=== PATIENT | male | born 1960 | race Two or more races ===

== ENCOUNTER 2020-09-19 19:03 | Emergency (ER) | payer SELFPAY ==
[~2020-09-19] VITALS: Ht 177.8 cm; Wt 81.8 kg
[2020-09-19] MEDS ORDERED: IV NORMAL SALINE 1000ML BAG 1,000 ML IV ONE (19:45)
[2020-09-19 19:56] LABS: BASO % 0 % (0-3); EOS % 0 % (0-3); HEMATOCRIT 45.8 % (39.0-53.0); HEMOGLOBIN 16.2 g/dL (13.0-17.5); LYMPH # 1.6 x10^3/uL (1.0-4.8); LYMPH % 19 % (24-48); MEAN CORPUSCULAR HEMOGLOBIN 30 pg (25-35); MEAN CORPUSCULAR HGB CONC 35 g/dL (31-37); MEAN CORPUSCULAR VOLUME 84 fL (79-100); MONO # 0.6 x10^3/uL (0.0-1.1); MONO % 7 % (0-9); NEUT # 6.1 x10^3/uL (1.8-7.7); NEUT % 73 % (31-73); PLATELET COUNT 142 x10^3/uL (140-400); RED BLOOD COUNT 5.46 x10^6/uL (4.30-5.70); RED CELL DISTRIBUTION WIDTH 13.8 % (11.5-14.5); WHITE BLOOD COUNT 8.3 x10^3/uL (4.0-11.0)
--- NOTE | 2020-09-19 19:56 | PHYS DOC ---
General Adult EDM: Chief Complaint: FLANK PAIN HPI: HPI: 60 yo M PMH DM and HTN presents to the ed with multiple complaints, c/o generalized weakness and fatigue with chronic low back pain. Reports he uses meth daily , has stopped the past 3 days. Is not compliant with any of his medications. Is requesting testing for Covid due to 3 days of subjective fever and chills, body aches, dry throat and decreased appetite. Patient believes he has an infection and has increased urinary frequency, urgency and foul-smelling urine. Review of Systems: Review of Systems: Constitutional: Denies diaphoresis or syncope Eyes: Denies change in visual acuity. [] HENT: Denies nasal congestion or rhinorrhea Respiratory: Denies hemoptysis or increased work of breathing Cardiovascular: Denies chest pain or edema or syncope GI: Denies abdominal pain, nausea, vomiting, bloody stools or diarrhea. [] : Denies hematuria Musculoskeletal: Denies back pain or joint pain. [] Integument: Denies rash. [] Neurologic: Denies headache, focal weakness or sensory changes or neck stiffness or saddle anesthesia or urinary bowel retention or incontinence Endocrine: Denies polyuria or polydipsia. [] Lymphatic: Denies swollen glands. [] Psychiatric: Denies depression or anxiety. [] Heart Score: Risk Factors: Risk Factors: DM, Current or recent (<one month) smoker, HTN, HLP, family history of CAD, obesity. Risk Scores: Score 0 - 3: 2.5% MACE over next 6 weeks - Discharge Home Score 4 - 6: 20.3% MACE over next 6 weeks - Admit for Clinical Observation Score 7 - 10: 72.7% MACE over next 6 weeks - Early Invasive Strategies Current Medications: Current Medications Medications (Trade) Dose Ordered Sig/Lora Start Time Stop Time Status Last Admin Dose Admin Sodium Chloride 1,000 ml @ 1,000 mls/hr 1X ONCE 09/19/20 19:45 09/19/20 20:44 09/19/20 19:50 1,000 MLS/HR Allergies: Allergies: Allergies Coded Allergies Type Severity Reaction Last Updated Verified No Known Drug Allergies 09/19/20 No Physical Exam: PE: Constitutional: Well developed, well nourished, no acute distress, non-toxic appearance, unkempt disheveled appearance HENT: Normocephalic, atraumatic, bilateral external ears normal, oropharynx moist, no oral exudates, Eyes: EOMI, conjunctiva normal, no discharge. [] Neck: Normal range of motion, supple, no stridor. [] Cardiovascular: S1/2 present Lungs & Thorax: Speaking in full sentences, bilateral equal chest rise Abdomen:soft, no tenderness, Skin: Warm, dry, no erythema, no rash. [] Back: No tenderness, no CVA tenderness. [] Extremities: No tenderness, no cyanosis, no clubbing, ROM intact, no edema. [] Neurologic: Alert and oriented X 3, normal motor function, normal sensory function, no focal deficits noted. [] Psychologic: Affect normal, judgement normal, mood normal. [] EKG: EKG: []Sinus rhythm at 76 bpm, no axis deviation, QTC 452, no T wave inversions, no ST elevations or ST depressions, no active chest pain Radiology/Procedures: Radiology/Procedures: []IMAGING REPORT Signed PATIENT: BENITA BAI ACCOUNT: [id number] : 1960 LOCATION: ER AGE: 60 SEX: M EXAM STATUS: PRE ER ORD. PHYSICIAN: MARLEY ANGUIANO DO REASON: flank pain PROCEDURE: PORTABLE CHEST 1V Exam: Chest one view INDICATION: Flank pain TECHNIQUE: Frontal view of the chest Comparisons: 02/09/2016 FINDINGS: The cardiomediastinal silhouette and pulmonary vessels are within normal limits. Linear bandlike opacity at the right lung base and to a lesser extent the left lung base. No pleural effusion. IMPRESSION: Bibasilar strandy airspace disease may relate to atelectasis or developing consolidative process. Electronically signed by: Gwendolyn Evans MD (09/19/2020 9:05 PM) [facility] DICTATED and SIGNED BY: GWENDOLYN EVANS MD DATE: 09/19/202104 Course & Med Decision Making: Course & Med Decision Making Pertinent Labs and Imaging studies reviewed. (See chart for details) COVID-19 CRITERIA: The patient was evaluated during the global COVID-19 pandemic, and that diagnosis was suspected/considered upon their initial presentation. Their evaluation, treatment and testing was consistent with current guidelines for patients who present with complaints or symptoms that may be related to COVID-19. Concern for generalized fatigue with nonspecific symptoms that could resemble Covid. Also with UTI complaints. Labs show uncontrolled non-anion gap diabetes and potassium of 3.2 that was replaced in the ED. Will DC home with Vantin for complicated UTI treatment. Covid test pending. Strict ED return precautions were given for increased work of breathing, chest pain, syncope or neurologic deficits. Encouraged urgent outpatient follow-up with PMD. Life-threatening processes were considered but are low suspicion at this time, given history and physical exam. Pt was educated on all prescription medications and adverse effects. All patient's questions were answered and pt was stable at time of discharge. Life/limb-threatening differential includes but is not limited to, surgical abdomen (appendicitis, cholecystitis, diverticulitis, inflammatory bowel disease, abscess, perforation), meningitis, encephalitis, Naga's angina, endocarditis, myocarditis, life-threatening rash (necrotizing fasciitis), gynecologic and urologic emergencies (endometritis, ovarian/testicular torsion, TOA, obstructive nephropathy, prostatitis), head and neck abscess, sepsis or shock, or respiratory failure. I spoken with the patient and her caregivers. I explained the patient's condition, diagnoses and treatment plan based on the information available to me at this time. I have answered the patient and her caregiver's questions and addressed any concerns. The patient and her caregivers have a good understanding of patient's diagnosis, condition and treatment plan as can be expected at this point. Vital signs have been stable. Patient's condition is stable and appropriate for discharge from the emergency department. Patient will pursue further outpatient evaluation with primary care physician or other designated or consulting physician as outlined in the discharge instructions. The patient and/or caregivers are agreeable to this plan of care and follow-up instructions have been explained in detail. The patient and/or caregivers have received these instructions in written form and have expressed an understanding of the discharge instructions. The patient and/or caregivers are aware that any significant change of condition or worsening of symptoms should prompt immediate return to this or the closest emergency department or call to 911. Faiza Disclaimer: Faiza Disclaimer: This electronic medical record was generated, in whole or in part, using a voice recognition dictation system. Departure Departure Impression: Primary Impression: Encounter for laboratory testing for COVID-19 virus Additional Impressions: Uncontrolled diabetes mellitus Methamphetamine use Disposition: 01 DC HOME SELF CARE/HOMELESS Condition: STABLE Referrals: NON,STAFF (PCP) FOLLOW UP WITH FAMILY MEDICINE: Family Medicine Address: [address] [place] [address] Patient Instructions: How to Avoid Diabetes Problems, Type 2 Diabetes Mellitus, Adult, Urinary Tract Infection Additional Instructions: EMERGENCY DEPARTMENT GENERAL DISCHARGE INSTRUCTIONS Thank you for coming to [facility] Emergency Department (ED) today and trusting us with you care. We trust that you had a positive experience in our Emergency Department. If you wish to speak to the department management, you may call the Director at [phone]. YOUR FOLLOW UP INSTRUCTIONS ARE FOLLOWS: 1. Do you have a private Doctor? If you do not have a private doctor, please ask for a resource list of physicians or clinics that may be able to assist you with follow up care. 2. The Emergency Physicain has interpreted your x-rays. The X-Ray specialist will also review them. If there is a change in the findings, you will be notified in 48 hours when at all possible. 3. A lab test or culture has been done, your results will be reviewed and you will be notified if you need a change in treatment. ADDITIONAL INSTRUCTIONS AND INFORMATION: 1. Your care today has been supervised by a physician who is specially trained in emergency care. Many problems require more than one evaluation for a complete diagnosis and treatment. We recommend that you schedule your follow up appointment as recommended to ensure complete treatment of you illness or injury. If you are unable to obtain follow up care and continue to have a problem, or if your condition worsens, we recommend that you return to the ED. 2. We are not able to safely determine your condition over the phone nor are we able to give sound medical advice over the phone. For these safety reasons, if you call for medical advice we will ask you to come to the ED for further evaluation. 3. If you have any questions regarding these discharge instructions please call the ED at [phone]. SAFETY INFORMATION: In the interest of safety, wellness, and injury prevention; we encourage you to wear your sealbelt, if you smoke; quite smoking, and we encourage family to use a protective helmet for bicycling and other sporting events that present an increased risk for head injury. IF YOUR SYMPTOMS WORSEN OR NEW SYMPTOMS DEVELOP, OR YOU HAVE CONCERNS ABOUT YOUR CONDITION; OR IF YOUR CONDITION WORSENS WHILE YOU ARE WAITING FOR YOUR FOLLOW UP APPOINTMENT; EITHER CONTACT YOUR PRIMARY CARE DOCTOR, THE PHYSICIAN WHOSE NAME AND NUMBER YOU WERE GIVEN, OR RETURN TO THE ED IMMEDIATELY. Scripts Cefpodoxime Proxetil (CEFPODOXIME PROXETIL) 200 Mg Tablet 1 TAB PO BID for 14 Days, #28 TAB Prov: MARLEY ANGUIANO DO 09/20/20 MARLEY ANGUIANO DO Sep 19, 2020 19:56
[2020-09-19 20:08] LABS: CALCIUM 8.7 mg/dL (8.5-10.1); GFR 76.2; POTASSIUM 3.2 mmol/L (3.5-5.1)
[2020-09-19 20:13] LABS: ALBUMIN 2.8 g/dL (3.4-5.0); ALBUMIN/GLOBULIN RATIO 0.6 (1.0-1.7); TOTAL BILIRUBIN 0.7 mg/dL (0.2-1.0); TOTAL PROTEIN 7.3 g/dL (6.4-8.2)
[2020-09-19 20:32] LABS: BILIRUBIN,URINE SMALL (NEG); CLARITY,URINE CLEAR; COLOR,URINE AMBER; NITRITE,URINE NEGATIVE (NEG); PROTEIN,URINE 30 mg/dL (NEG-TRACE)
[2020-09-19 20:38] LABS: AMORPHOUS SEDIMENT,UR PRESENT /HPF; BACTERIA,URINE FEW /HPF (0-FEW); HYALINE CASTS, URINE MODERATE /HPF; RBC,URINE 0 /HPF (0-2)
[2020-09-19 20:39] LABS: BARBITURATES NEG (NEG); BENZODIAZEPINES NEG (NEG); CANNABINOIDS NEG (NEG); COCAINE NEG (NEG); GRANULAR CASTS,URINE OCCASIONAL /HPF; METHADONE NEG (NEG); OPIATES NEG (NEG); PHENCYCLIDINE NEG (NEG)
[2020-09-19 20:40] LABS: AMPHETAMINE/METHAMPHETAMINE POS (NEG)
--- NOTE | 2020-09-19 21:08 | RAD ---
Exam: Chest one view INDICATION: Flank pain TECHNIQUE: Frontal view of the chest Comparisons: 02/09/2016 FINDINGS: The cardiomediastinal silhouette and pulmonary vessels are within normal limits. Linear bandlike opacity at the right lung base and to a lesser extent the left lung base. No pleural effusion. IMPRESSION: Bibasilar strandy airspace disease may relate to atelectasis or developing consolidative process. Electronically signed by: Gwendolyn Guardado MD (09/19/2020 9:05 PM) [facility]
[2020-09-19] MEDS ORDERED: POTASSIUM CHLORIDE 20 MEQ TABLET.ER. PO ONE (23:30)
[2020-09-19 23:47] VITALS: BP 141/80
[2020-09-20] MEDS ORDERED: CEFP200T PO (00:15)
--- NOTE | 2020-09-22 09:10 | NUR ---
IP: Attempted to call COVID results, No answer. Left a voicemail to return the call.
--- NOTE | 2020-09-22 11:12 | NUR ---
IP: Informed pt of positive COVID test and the need to quarantine for 10 days. All questions answered, pt verbalized understanding.
== END 2020-09-20 00:21 | disposition home or self-care (01) ==
LOC: ER 19:03
DX: U07.1 COVID-19 (principal); E11.9 Type 2 diabetes mellitus without complications; F15.90 Other stimulant use, unspecified, uncomplicated; I10 Essential (primary) hypertension; G89.29 Other chronic pain
CPT/HCPCS: 36415; 71045; 80053; 80307; 81001; 82962; 83690; 84484; 85025; 96360; 96361; 99285; C9803; J7030; U0003